=== PATIENT | male | born 1985 | race Caucasian/White ===

== ENCOUNTER 2021-03-14 22:49 | Emergency (ER) | payer OTHER ==
[~2021-03-14] VITALS: Ht 182.8 cm; Wt 90.7 kg
[~2021-03-14 22:49] MED LIST: BENTYL10 MG PO; CLARITIN10 MG PO; CORDROL20 MG PO; EES400 MG PO; FLEXERIL10 MG PO; HYDROCODONE BIT1 T11 PO; LOMOTIL 0.025 M1 TA1 PO; LORATADINE10 M1 PO; MEDROL DOSEPAK4 MG PO; MOTRIN800 MG PO; MUCINEX D 12001 TER PO; PEPCID20 MG PO; PREVACID30 M1 PO; ROBITUSSIN AC 10 MG/ PO; TRIMOX500 MG PO; ZITHROMAX Z PA250 MG PO; ZOFRAN ODT4 MG SL
== END 2021-03-15 01:10 | disposition home or self-care (01) ==
LOC: ED 22:49
DX: T65.91XA Toxic effect of unspecified substance, accidental (unintentional), initial encounter (principal); Z79.899 Other long term (current) drug therapy; Y92.89 Other specified places as the place of occurrence of the external cause

== ENCOUNTER → 2024-08-31 | Outpatient (CLI) | payer OTHER | END | disposition home or self-care (01) | LOC: LAB 14:14 | PROVIDERS: ATTEND Family Medicine | DX: R73.9 Hyperglycemia, unspecified (principal); E05.90 Thyrotoxicosis, unspecified without thyrotoxic crisis or storm; D50.9 Iron deficiency anemia, unspecified ==

== ENCOUNTER 2025-08-02 15:35 | Emergency (ER) | payer OTHER ==
[~2025-08-02] VITALS: Ht 182.8 cm; Wt 97.5 kg
[2025-08-02] MEDS ORDERED: Amoxicillin/Clavulanate Pota 875 MG TAB PO ONE (17:35)
[2025-08-02] MEDS ORDERED: Acetaminophen/Oxycodone 5 MG/325 MG TABLET PO ONE (17:35)
[2025-08-02] MEDS ORDERED: AMOX-CLAV 875-1 EACH PO (17:40)
== END 2025-08-02 18:01 | disposition home or self-care (01) ==
LOC: ED 15:35
DX: K08.89 Other specified disorders of teeth and supporting structures (principal); K21.9 Gastro-esophageal reflux disease without esophagitis